=== PATIENT | male | born 1985 | race Caucasian/White ===

== ENCOUNTER 2017-03-10 03:37 | Observation (INO) | payer SELFPAY ==
[~2017-03-10] VITALS: Ht 167.6 cm; Wt 66.5 kg
--- NOTE | ~2017-03-10 | HP ---
PATIENT'S NAME: ANDREW TOTH [facility] AGE: 31 Y [address] ROOM: [place] [address] LOCATION: [facility] [place] ADMIT DATE: 03/10/2017 History & Physical DISCHARGE DATE: 03/12/2017 FAMILY PHYSICIAN: Physician, Unknown ATTENDING PHYSICIAN: Andres Fu DATE OF SERVICE: HISTORY OF PRESENT ILLNESS: This is a noncompliant white male, who has been known to me for many years. History of severe alcohol abuse and cannabis abuse. He had been clean for 9 months, and a couple of weeks ago, he started drinking again after a week of angry at his ex-partner. They have a child . He admitted to started drinking lots of vodka. He also do smoking using an E- cigarette to try to stop smoking. He presented to the emergency room and requested detox. In the emergency room, he was found to be intoxicated and requesting detox. Alcohol level was elevated. I was contacted by the emergency room, and he is admitted for detoxification pathway. He is admitted to the hospital and pathway started. Care Management was contacted. IV fluids, banana bag, etc., were begun. PAST MEDICAL HISTORY: Significant for, 1. Alcohol abuse with previous treatment. 2. History of cannabis abuse. 3. Previous hand surgery. SOCIAL HISTORY: He is single. He has fathered a child. He lost his job at [employer], but just recently regained it. He drinks as above up to approximately 1.75 L of vodka every other day. PHYSICAL EXAMINATION: GENERAL: He is awake and alert. HEAD: Atraumatic and normocephalic. LUNGS: Clear. HEART: Regular rate and rhythm. ABDOMEN: Soft, nontender, nondistended. There is no trauma noted. IMPRESSION: 1. Alcohol abuse. Desire for detoxification. 2. History of cannabis abuse. 3. Nicotine abuse. 4. History of depression, under treatment. 5. History of seizure with withdrawal from alcohol. PATIENT'S NAME: ANDREW TOTH [facility] AGE: 31 Y [address] ROOM: [place] [address] LOCATION: [facility] [place] ADMIT DATE: 03/10/2017 History & Physical DISCHARGE DATE: 03/12/2017 FAMILY PHYSICIAN: Physician, Unknown ATTENDING PHYSICIAN: Andres Fu PLAN: To follow pathway. Care Management to see. Recommend repeated treatment of stent. We will watch closely for any withdrawal symptoms. MD ALLISON NUNN/nancy /[id number] D: [id number] T: [id number] HISTORY & PHYSICAL
--- NOTE | ~2017-03-10 | ER ---
PATIENT'S NAME: ANDREW TOTH [facility] AGE: 31 Y [address] ROOM: [place] [address] LOCATION: [facility] [place] ADMIT DATE: 03/10/2017 ER/Outpatient Report DISCHARGE DATE: FAMILY PHYSICIAN: PHYSICIAN, UNKNOWN ATTENDING PHYSICIAN: Andres Fu Time of Arrival: 0337 hours. Time of Exam: 0358 hours. IDENTIFICATION: A 31-year-old male. CHIEF COMPLAINT: The patient desiring detox. HISTORY OF PRESENT ILLNESS: The patient has a history of alcoholism, has had withdrawal seizures in the past and is requesting detox. He had been sober for 9 months. Three weeks ago, he started drinking constantly again. Last drink was 15 minutes prior to arrival, malt liquor. No other problems or concerns. ALLERGIES: NO KNOWN DRUG ALLERGIES. CURRENT MEDICATIONS: He is supposed to be on Pristiq, but has not taken Pristiq for 3 weeks. MEDICAL PROBLEMS: Liver disease, seizures, and alcoholism. PRIOR SURGERIES: Right hand surgery. SOCIAL HISTORY: The patient is currently unemployed. FAMILY HISTORY: Dad with heart disease. Mom with MS, hypertension, and hyperlipidemia. Brother with alcoholism. SOCIAL HISTORY: The patient denies tobacco use or drug use. He is admitted to drinking, but is unable to quantitate how much. REVIEW OF SYSTEMS: PATIENT'S NAME: ANDREW TOTH [facility] AGE: 31 Y [address] ROOM: [place] [address] LOCATION: [facility] [place] ADMIT DATE: 03/10/2017 ER/Outpatient Report DISCHARGE DATE: FAMILY PHYSICIAN: PHYSICIAN, UNKNOWN ATTENDING PHYSICIAN: Andres Fu Otherwise, negative. REVIEW OF SYSTEMS: The patient has left flank pain which is not new for him and right shoulder pain which also is not new for him. PHYSICAL EXAMINATION: VITAL SIGNS: Height 5 feet 6 inches, weight 67.1 kg. Blood pressure 119/70, pulse 90, respirations 18, temperature 96.8, and saturations 93% on room air. GENERAL: A 31-year-old male, in no acute distress. HEENT: Head: Normocephalic, atraumatic. Ears: TMs translucent, both ears. Eyes: Pupils equal and reactive to light and accommodation. Extraocular movements intact. Nose: Mucosa pink. No lesions. Mouth: No lesions. Pharynx benign. NECK: Supple. No lymphadenopathy. LUNGS: Clear to auscultation. HEART: Regular rate and rhythm. ABDOMEN: Soft, nondistended, and nontender. SKIN: [place], warm, and dry. No lesions or rashes noted. NEURO: No focal deficit. LABORATORY DATA: Chemistry panel is unremarkable. Acetaminophen and salicylate levels are normal. UDS is negative. UA is unremarkable. CBC is normal. JIAN 0.364. IMPRESSION: 1. Acute alcohol intoxication. 2. Alcoholism, desiring detox. 3. History of withdrawal seizures. PLAN: For admission per Dr. Fu, his primary care physician. A banana bag had been initiated in the emergency room, 1 L over 4 hours. CALI CANALES MD CAR/modl /[id number] d: 03/10/172229 t: 03/11/170, OUTPATIENT REPORT
--- NOTE | ~2017-03-10 | DS ---
PATIENT'S NAME: ANRDEW TOTH [facility] AGE: 31 Y [address] ROOM: [address] [address] LOCATION: [facility] [place] ADMIT DATE: 03/10/2017 Discharge Summary DISCHARGE DATE: 03/12/2017 FAMILY PHYSICIAN: Physician, Unknown ATTENDING PHYSICIAN: Andres Fu HOSPITAL COURSE: This 31-year-old white male was admitted through the emergency room for request of detox. He was admitted under Detox Pathway. Nicotine patch applied, routine medications. He does have a history of withdrawal seizure from alcohol. A history of depression, alcohol, meds. He was progressing well on detox. He subsequently left AMA on 03/12/2017. MD ALLISON NUNN/nolanl /[id number] d: 04/05/17 1319 t: 04/09/17 0654, DISCHARGE SUMMARY
[~2017-03-10 03:37] MED LIST: ATIVAN2 MG PO; B COMPLEX1 EACH PO; BUSPAR10 MG PO; FAMOTIDINE20 MG PO; FOLIC ACID1 MG PO; MAG-OX-400(241400 MG PO; NICODERM (HABIT14 MG TRANS; NICOTINE PATCH1 EAC1 TRANS; PHENOBARBITAL30 MG PO; THERAGRAN-M1 TAB PO
[2017-03-10 04:28] LABS: BASOPHIL % 0.2 %; EOSINOPHIL % 0.4 %; HEMOGLOBIN 14.8 g/dL (12.0-17.0); IMMATURE GRANULOCYTE % 0.2 %; LYMPHOCYTE # 1.5 K/uL (0.8-4.0); LYMPHOCYTE % 29.3 %; MCH 30.6 pg (27.0-34.0); MCHC 34.4 gm/dL (32.0-36.5); MONOCYTE # 0.6 K/uL (0.0-1.0); MONOCYTE % 12.2 %; MPV 10.1 fl (9.4-12.4); NEUTROPHIL # (ANC) 2.9 K/uL (1.4-9.0); NEUTROPHIL % 57.7 %; NRBC % 0 /100WBC (0-0.00); PLATELET COUNT 167 K/uL (150-450); RBC 4.83 M/uL (4.00-6.00); RDW-CV 14.1 % (11.9-14.6)
[2017-03-10 04:33] LABS: BILIRUBIN URINE NEGATIVE (NEGATIVE); BLOOD URINE NEGATIVE /UL (NEGATIVE); COLOR URINE YELLOW (YELLOW); GLUCOSE URINE NEGATIVE (NEGATIVE); KETONE URINE NEGATIVE (NEGATIVE); LEUKOCYTES URINE 25 /UL (NEGATIVE); NITRITE URINE NEGATIVE (NEGATIVE); PROTEIN URINE NEGATIVE (NEGATIVE); TURBIDITY URINE CLEAR (CLEAR); UROBILINOGEN URINE 8 mg/dL (NORMAL)
[2017-03-10 04:44] LABS: BACTERIA URINE NEGATIVE (NEGATIVE); EPITHELIAL URINE 0-2 #/HPF (NEGATIVE); RBC URINE NEGATIVE #/HPF (NEGATIVE); WBC URINE 0-2 #/HPF (NEGATIVE)
[2017-03-10 04:45] LABS: ALK PHOS 58 IU/L (33-138); ALT 41 IU/L (12-78); ANION GAP 11.7 (10.0-19.0); AST 63 IU/L (10-40); BLOOD UREA NITROGEN 8 mg/dL (6-24); CALCIUM 7.8 mg/dL (8.5-10.5); CHLORIDE 108 mMol/L (96-110); CO2 29 mMol/L (22-32); CREATININE 0.8 mg/dL (0.6-1.3); ESTIMATED GFR (MDRD EQUATION) > 60; POTASSIUM 3.7 mMol/L (3.7-5.1); SODIUM 145 mMol/L (135-145); TOTAL BILIRUBIN 0.5 mg/dL (0.0-1.5); TOTAL PROTEIN 6.7 g/dL (6.0-8.4)
[2017-03-10 04:55] LABS: AMPHETAMINE NEGATIVE (NEGATIVE); BARBITURATE NEGATIVE (NEGATIVE); COCAINE NEGATIVE (NEGATIVE); OPIATES NEGATIVE (NEGATIVE)
[2017-03-10] MEDS ORDERED: PRISTIQ ER100 MG PO (15:48)
[2017-03-11 04:40] LABS: BASOPHIL % 0.3 %; EOSINOPHIL # 0.1 K/uL (0.0-0.5); EOSINOPHIL % 2.2 %; HEMATOCRIT 38.4 % (37.0-53.0); LYMPHOCYTE % 26.8 %; MCH 30.7 pg (27.0-34.0); MCHC 33.9 gm/dL (32.0-36.5); MCV 90.8 fl (83.0-98.0); MONOCYTE # 0.4 K/uL (0.0-1.0); MONOCYTE % 10.7 %; MPV 10.8 fl (9.4-12.4); NEUTROPHIL # (ANC) 2.2 K/uL (1.4-9.0); NRBC % 0 /100WBC (0-0.00); RBC 4.23 M/uL (4.00-6.00); WBC 3.7 K/uL (4.0-11.0)
[2017-03-11 04:53] LABS: PLATELET COUNT 123 K/uL (150-450)
[2017-03-11 04:57] LABS: ALBUMIN 3.1 gm/dL (3.5-5.0); ALK PHOS 57 IU/L (33-138); ALT 32 IU/L (12-78); ANION GAP 8.9 (10.0-19.0); AST 42 IU/L (10-40); BLOOD UREA NITROGEN 11 mg/dL (6-24); CALCIUM 7.7 mg/dL (8.5-10.5); CHLORIDE 108 mMol/L (96-110); CO2 29 mMol/L (22-32); CREATININE 0.7 mg/dL (0.6-1.3); ESTIMATED GFR (MDRD EQUATION) > 60; MAGNESIUM 1.8 mg/dL (1.8-2.6); POTASSIUM 3.9 mMol/L (3.7-5.1); SODIUM 142 mMol/L (135-145); TOTAL PROTEIN 5.2 g/dL (6.0-8.4)
== END 2017-03-12 23:10 | disposition left against medical advice (07) ==
LOC: GMED 03:37 → GMSU 05:35
PROVIDERS: Family Medicine; ADMIT Family Medicine
PROC: BP09ZZZ Plain Radiography of Left Shoulder (ICD-10-PCS; principal; 2017-03-10)
DX: F10.229 Alcohol dependence with intoxication, unspecified (principal); T51.0X4A Toxic effect of ethanol, undetermined, initial encounter; M25.512 Pain in left shoulder
CPT/HCPCS: G0378; G0480; J3411; J7030

== ENCOUNTER 2017-03-13 13:49 | Emergency (ER) | payer SELFPAY ==
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
[~2017-03-13 13:49] MED LIST changes: +PRISTIQ ER100 MG PO
== END 2017-03-13 16:20 | disposition disaster alternative care site (69) ==
LOC: GACC 13:49
DX: S22.41XA Multiple fractures of ribs, right side, initial encounter for closed fracture (principal); F10.20 Alcohol dependence, uncomplicated; Z98.890 Other specified postprocedural states; V19.9XXA Pedal cyclist (driver) (passenger) injured in unspecified traffic accident, initial encounter; Y93.89 Activity, other specified
CPT/HCPCS: J1885; J7030; Q9967

== ENCOUNTER 2017-04-09 23:01 | Emergency (ER) | payer SELFPAY ==
--- NOTE | ~2017-04-09 | ER ---
[facility] 31 Y [address] ROOM: [place] [address] LOCATION: [facility] ADMIT DATE: 04/09/2017 ER/Outpatient Report DISCHARGE DATE: FAMILY PHYSICIAN: Andres Fu MD ATTENDING PHYSICIAN: Omar Alexandre Time of Arrival: 2301 hours. Time of Evaluation: 2307 hours. CHIEF COMPLAINT: Detox. HISTORY OF PRESENT ILLNESS: The patient is a 31-year-old male, who presents to the emergency department today with chief complaint of detox. He reports his mother last week. He reports his last drink was about 2 hours prior to arrival. He has been drinking malt liquor. He denies any suicidal ideation. No homicidal ideation. No auditory or visual hallucinations. Does report some left upper quadrant abdominal pain every time he drinks. He does have some nausea. No vomiting. No chest pain. No cough. No shortness of breath. No fevers, no chills. No troubles urinating. No diarrhea. No headache. Pain is currently 4/10 in severity. PAST MEDICAL HISTORY: Alcohol, depression, seizure, and anxiety. PAST SURGICAL HISTORY: Right hand. SOCIAL HISTORY: The patient smokes. Drinks alcohol. Denies any illicit drug use. ALLERGIES: NO KNOWN DRUG ALLERGIES. MEDICATIONS: None. PRIMARY CARE DOCTOR: Dr. Fu. REVIEW OF SYSTEMS: All systems are reviewed by myself and are negative with the exception of those discussed in HPI and past medical history. [facility]GE[facility] 31 Y [address] ROOM: [place] [address] LOCATION: [facility] ADMIT DATE: 04/09/2017 ER/Outpatient Report DISCHARGE DATE: FAMILY PHYSICIAN: Andres Fu MD ATTENDING PHYSICIAN: Omar Alexandre PHYSICAL EXAMINATION: VITAL SIGNS: Weight 65.3 kg, blood pressure 148/104, pulse 92, respiratory rate 18, temperature 97.1, oxygen saturation 97% on room air. GENERAL: The patient is a 31-year-old male, who appears stated age, in no acute distress at this time. HEENT: Head; normocephalic, atraumatic. Pupils are equal, round, and reactive to light. Extraocular motions are intact. Nares are patent bilaterally. TMs are clear. Oropharynx is clear. NECK: Supple. There is no nuchal rigidity. CARDIOVASCULAR: Regular rate and rhythm. No murmurs, rubs, or gallops. LUNGS: Clear to auscultation bilaterally. No wheezes, rales, or rhonchi. ABDOMEN: Soft, nontender, and nondistended. No rebound, rigidity, or guarding. MUSCULOSKELETAL: The patient moves all 4 extremities. 5/5 muscle strength. There is no tremor noted. SKIN: Warm and dry. LABORATORY DATA AND X-RAYS: Labs and x-rays are obtained. CBC: White blood cell count 3.7, hemoglobin 17.1, platelet 118. CMP, unremarkable. Alkaline phosphatase is normal. AST is 75. ALT is normal. Acetaminophen is less than 2. Salicylate is less than 2.8. Beta hydroxybutyrate is negative. Alcohol is 309. Venous blood gas 7.51/41/121/33/8.8. EKG is obtained, is interpreted by myself at 2351 hours showed sinus rhythm with a rate of 74, right axis deviation, HI interval 220, otherwise normal interval. No ST elevation or ST depression. T-wave inversions were noted. IMPRESSION: 1. Alcohol intoxication. 2. Requesting alcohol detoxification. 3. Initial visit. EMERGENCY DEPARTMENT COURSE: The patient was brought back to the examination room. Seen and evaluated by myself. IV is established. The patient is given a banana bag. He is given 4 mg of Zofran IV. Laboratory analysis and imaging are obtained as described above. I have discussed results with the patient. I have completed the [facility] Medicine and Alcohol Detoxification flow sheets. The patient does qualify for the outpatient treatment. The patient's alcohol withdrawal assessment scoring guidelines CIWA is currently a 3. I anticipate that the patient has potential for alcohol withdrawal as he has previously had seizures. I have discussed with him that we will give him Librium for home. I have also written a prescription for thiamine, folate, and multivitamin. I have discussed this with the patient. I have discussed different treatment options in [place]. The patient has been in [place] previously. I have PATIENT'S NAME: ANDREW TOTH [facility] AGE: 31 Y [address] ROOM: [place], [place] [address] LOCATION: [facility] ADMIT DATE: 04/09/2017 ER/Outpatient Report DISCHARGE DATE: FAMILY PHYSICIAN: Andres Fu MD ATTENDING PHYSICIAN: Omar Alexandre recommended that. I have discussed with the patient outpatient treatment. I have recommended that he goes to [facility] for evaluation and help treatment with his depression as he has had a very stressful events lately. Once again, the patient is not suicidal at this time. I do feel he is safe for outpatient treatment at this time. He is very awake and talking with us. We have observed him here in the emergency department. His questions were answered. I have discussed return to care instructions including worsening symptoms or other concerns return to the emergency department as soon as possible. The patient is agreeable without further questions at this time. DISPOSITION: The patient is discharged home in good condition. DO TIKA WEBB/nancy /[id number] d: 04/10/17329 t: 04/10/171911, OUTPATIENT REPORT
[2017-04-09 23:31] LABS: BICARBONATE 32.7 mmol/L (18.0-23.0); PCO2 41 mmHg (35-45); PO2 121 mmHg (80-90)
[2017-04-09 23:32] LABS: BASOPHIL % 0.5 %; EOSINOPHIL % 0.5 %; HEMOGLOBIN 17.1 g/dL (12.0-17.0); IMMATURE GRANULOCYTE % 0.3 %; LYMPHOCYTE # 1.2 K/uL (0.8-4.0); LYMPHOCYTE % 32.8 %; MCHC 34.6 gm/dL (32.0-36.5); MCV 91.5 fl (83.0-98.0); MONOCYTE # 0.5 K/uL (0.0-1.0); MONOCYTE % 13.7 %; NEUTROPHIL # (ANC) 1.9 K/uL (1.4-9.0); NEUTROPHIL % 52.2 %; NRBC % 0 /100WBC (0-0.00); PLATELET COUNT 118 K/uL (150-450); RDW-CV 14.7 % (11.9-14.6); WBC 3.7 K/uL (4.0-11.0)
[2017-04-09 23:34] LABS: HEMATOCRIT 49.4 % (37.0-53.0); MCH 31.7 pg (27.0-34.0)
[2017-04-09 23:52] LABS: ALBUMIN 4.2 gm/dL (3.5-5.0); ALK PHOS 82 IU/L (33-138); ALT 51 IU/L (12-78); ANION GAP 13.6 (10.0-19.0); AST 75 IU/L (10-40); BLOOD UREA NITROGEN 5 mg/dL (6-24); CALCIUM 9.1 mg/dL (8.5-10.5); CHLORIDE 103 mMol/L (96-110); CO2 28 mMol/L (22-32); CREATININE 0.7 mg/dL (0.6-1.3); POTASSIUM 3.6 mMol/L (3.7-5.1); SODIUM 141 mMol/L (135-145); TOTAL PROTEIN 7.2 g/dL (6.0-8.4)
[2017-04-09 23:56] LABS: TOTAL BILIRUBIN 0.5 mg/dL (0.0-1.5)
[2017-04-10 02:04] LABS: OPIATES NEGATIVE (NEGATIVE)
[2017-04-10 02:13] LABS: AMPHETAMINE NEGATIVE (NEGATIVE); COCAINE NEGATIVE (NEGATIVE)
[2017-04-10 02:14] LABS: BARBITURATE NEGATIVE (NEGATIVE)
== END 2017-04-10 03:01 | disposition disaster alternative care site (69) ==
LOC: GMED 23:01
PROVIDERS: Emergency Medicine
DX: F10.229 Alcohol dependence with intoxication, unspecified (principal); F10.239 Alcohol dependence with withdrawal, unspecified; F17.200 Nicotine dependence, unspecified, uncomplicated; F32.9 Major depressive disorder, single episode, unspecified; F41.9 Anxiety disorder, unspecified; Z98.890 Other specified postprocedural states; Y90.8 Blood alcohol level of 240 mg/100 ml or more
CPT/HCPCS: G0480; J3411; J7030

== ENCOUNTER → 2017-04-17 | Emergency (ER) | payer SELFPAY | END | disposition disaster alternative care site (69) | LOC: GAMB 16:24 | DX: F10.121 Alcohol abuse with intoxication delirium (principal); S80.811A Abrasion, right lower leg, initial encounter; W19.XXXA Unspecified fall, initial encounter ==